=== PATIENT | male | born 1955 | race Caucasian/White ===

== ENCOUNTER → 2020-03-20 09:00 | Outpatient (CLI) | payer OTHER, SELFPAY ==
--- NOTE | ~2020-03-20 | XR_ITS ---
XR cervical spine 4-5V DATE: 03/20/2020 09:31 INDICATION: Rheumatoid arthritis TECHNIQUE: Neutral, flexion and extension lateral views. Swimmer's, AP, open-mouth views. COMPARISON: None FINDINGS: Status post anterior fusion at C6-7. There is straightening of the cervical spine. There is minimal anterolisthesis at C4-5. Otherwise no fracture or dislocation or locked facet. No pr evertebral soft tissue swelling. IMPRESSION: Status post anterior surgical fusion at C6-7 Straightening Minimal anterolisthesis at C4-5 Reviewed, dictated and finalized at location B. 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
== END ==
PROVIDERS: PCP Internal Medicine; Visit Provider Internal Medicine Rheumatology
DX: M05.79 Rheumatoid arthritis with rheumatoid factor of multiple sites without organ or systems involvement (principal); Z98.1 Arthrodesis status; M53.82 Other specified dorsopathies, cervical region; M43.12 Spondylolisthesis, cervical region
CPT/HCPCS: 72050

== ENCOUNTER → 2020-09-19 15:35 | Outpatient (CLI) | payer OTHER, SELFPAY ==
--- NOTE | ~2020-09-19 | MR_ITS ---
EXAMINATION: MR lumbar spine wo con DATE: 09/19/2020 16:14 INDICATION: Low back pain. TECHNIQUE: Magnetic resonance imaging (MRI) of the lumbar spine was performed without intravenous con trast. Sequences included sagittal T2-weighted FSE, sagittal STIR FSE, sagittal T1-weighted FSE, and axial T2-weighted FSE. COMPARISON: None FINDINGS: Bone alignment is normal. There are changes of posterior fusion procedure at L3-L4 with ped icle screws. There are fixation screws through right sacroiliac joint. Vertebral body heights are nor mal. There is mildly decreased disc height at L2-L3 and L3-L4 and moderately decreased disc height at L4-L5 and L5-S1. There are laminectomies at L3 and L4. There is a 5.0 x 1.8 x 0.7 cm subcutaneous fl uid collection superficial to the laminectomies, likely a seroma. The osseous central spinal canal is developmentally small at L2. The distal spinal cord signal intensity is normal. The conus medullaris is at L1. The following disc levels are specifically discussed: L1-L2: The disc does not extend beyond the endplate margin. There is moderate bilateral facet joint o steoarthritis. There is no neural foraminal stenosis. There is no central canal stenosis. L2-L3: The disc is bulging with superimposed right subarticular and foraminal zone extrusion. There i s moderate bilateral facet joint osteoarthritis. There is severe right and moderate left neural kulwinder inal stenosis. There is mild central canal stenosis with posterior decompression. L3-L4: The disc does not extend beyond the endplate margin. There is moderate bilateral facet joint h ypertrophy. There is mild bilateral neural foraminal stenosis. There is no central canal stenosis. L4-L5: The disc is bulging and has an annular fissure. There is moderate bilateral facet joint hypert rophy. There is moderate bilateral neural foraminal stenosis. There is mild central canal stenosis wi th posterior decompression. L5-S1: The disc is bulging and has an annular fissure. There is moderate right and severe left facet joint osteoarthritis. There is mild bilateral neural foraminal stenosis. There is mild central canal stenosis. IMPRESSION: 1. Moderate lumbar spondylosis. 2. Posterior fusion procedure at L3-L4. Reviewed, dictated and finalized at location A.
== END ==
PROVIDERS: PCP Orthopaedic Surgery; Visit Provider Orthopaedic Surgery
DX: M47.896 Other spondylosis, lumbar region (principal); Z98.1 Arthrodesis status
CPT/HCPCS: 72148